=== PATIENT | female | born 1960 | race Caucasian/White ===

== ENCOUNTER → 2016-09-25 | Outpatient (CLI) | payer OTHER | END | disposition home or self-care (01) | LOC: KCIC MAMMO 10:58 | PROVIDERS: ATTEND Family Medicine | DX: Z12.31 Encounter for screening mammogram for malignant neoplasm of breast (principal) | CPT/HCPCS: G0202; 77067 ==

== ENCOUNTER → 2016-10-20 | Outpatient (CLI) | payer OTHER ==
--- NOTE | 2016-10-20 14:26 | KCIC ---
Left breast ultrasound: Reason for examination: Nodular parenchymal asymmetry on screening mammogram. Comparison is made to mammographic exam dated 09/25/2016. Ultrasound examination was performed with attention to the upper outer quadrant of the left breast. There is a dense patch of fibroglandular tissue in the 2:00 position 7 cm from the nipple which probably corresponds to the area of mammographic concern. There are no cystic or solid nodules seen. No abnormal appearing lymph nodes are seen in the left axilla. IMPRESSION: No suspicious abnormality seen sonographically in the left breast. Recommend routine mammographic follow-up. BI-RADS Category 2: Benign. "Our facility is accredited by the [employer] Mammography Program." This patient's information has been entered into a reminder system for the patient to be notified with the results of her examination and a target date for the next mammogram. Electronically signed by: Alix Hamilton MD (10/20/2016 2:22 PM) [id number]
== END | disposition home or self-care (01) ==
LOC: KCIC US 08:41
PROVIDERS: ATTEND Family Medicine
DX: R92.8 Other abnormal and inconclusive findings on diagnostic imaging of breast (principal); N64.89 Other specified disorders of breast
CPT/HCPCS: 76641

== ENCOUNTER → 2017-06-14 | Outpatient (CLI) | payer OTHER | END | disposition home or self-care (01) | LOC: RAD 10:34 | DX: M25.561 Pain in right knee (principal); M25.562 Pain in left knee; M54.9 Dorsalgia, unspecified; I70.0 Atherosclerosis of aorta | CPT/HCPCS: 72100; 73560 ==

== ENCOUNTER → 2017-11-14 | Outpatient (CLI) | payer OTHER ==
[~2017-11-14] MED LIST: FENO160T PO; FLUT9.9S NS; GABA-585 PO; GADOBUTROL 7.5 MMOL/7.5 ML VIAL IV ONE
--- NOTE | 2017-11-14 09:27 | KCIC ---
EYE FOR FOREIGN BODY History: History of metal to the eye, pre-MRI screening Comparison: None. Findings: Single view of the orbits is submitted. No metallic foreign body is identified in the region of orbits. Impression: 1. No metallic foreign body is identified in the region of orbits. Electronically signed by: Bonifacio Urrutia MD (11/14/2017 9:23 AM) [id number]
--- NOTE | 2017-11-14 09:56 | KCIC ---
MRI Lumbar Spine without and with contrast History: Abnormal x-rays, peripheral polyneuropathy, chronic low back pain and numbness in bilateral legs Technique: Multiplanar, multi sequential pre and postcontrast MR imaging was performed of the lumbar spine. Contrast: 7 cc Gadavist Comparison: None Findings: Lumbar vertebral body stature is preserved. Conus terminates at L1. There is no nodular enhancement of the conus or cauda equina, no enhancement in the intervertebral disc spaces. Intervertebral disc spaces are overall preserved. There is mild diffuse heterogeneity of the marrow signal not associated with significant edema. There is also focus of likely nonspecific sclerosis of the L2 vertebral body on the right with decreased signal on all sequences, about 1 cm in size, not associated with significant edema or enhancement. AP alignment is within normal limits. There is right renal pelviectasis/extrarenal pelvis. L1-L2: Spinal canal and neural foramina are adequate. L2-L3: Neural foramina and spinal canal are adequate. There is a tiny right posterior annular tear. L3-L4: Spinal canal and neural foramina are adequate. L4-L5: Neural foramina and spinal canal are adequate. L5-S1: Spinal canal and the neural foramina are adequate. Impression: 1. There is no significant lumbar spinal stenosis or neural foramina compromise. 2. There is a focus of nonspecific sclerosis of the right L2 vertebral body not associated with edema or enhancement. There is other mild nonspecific diffuse heterogeneity of the marrow signal, could be related to hyperplastic red marrow as can be associated with sequela of chronic stress reaction or hypoxia unless suspicion for other marrow order. Electronically signed by: Bonifacio Urrutia MD (11/14/2017 9:53 AM) [id number]
== END | disposition home or self-care (01) ==
LOC: KCIC MRI 08:45
PROVIDERS: ATTEND Family Medicine
DX: Z01.00 Encounter for examination of eyes and vision without abnormal findings (principal); M54.5 Low back pain; G89.29 Other chronic pain
CPT/HCPCS: 70030; 72158; A9585